=== PATIENT | male | born 1970 | race Two or more races ===

== ENCOUNTER 2023-06-12 15:44 | Inpatient (IN) | payer OTHER ==
[~2023-06-12] VITALS: Ht 185.4 cm; Wt 79.0 kg
[2023-06-12] MEDS ORDERED: ONDANSETRON HCL 4 MG/2 ML VIAL IV ONE (20:30)
[2023-06-12] MEDS ORDERED: levETIRAcetam 500 MG TAB PO ONE (20:30)
[2023-06-12] MEDS ORDERED: OXcarbazepine 300 MG TAB PO ONE (20:30)
[2023-06-12] MEDS ORDERED: DOCUSATE SOD 100 MG CAP PO ONE (20:30)
[2023-06-12] MEDS ORDERED: MORPHINE SULFATE 4 MG/ML SYR/VIAL IV ONE (20:30)
[2023-06-12] MEDS ORDERED: ONDANSETRON HCL 4 MG/2 ML VIAL IV PRN (21:15)
[2023-06-12 21:37] LABS: Basophils # (auto) 0.1 10 ^3/uL (0-0.2); Eosinophils # (auto) 0.2 10 ^3/uL (0-0.8); Hematocrit 39.4 % (41.0-53.0); Hemoglobin 13.5 g/dL (13.5-17.5); Lymphocytes % (auto) 17.2 % (10.0-50.0); Mean Corpuscular Hemoglobin 32.5 pg (28.0-32.0); Mean Corpuscular Hgb Conc. 34.3 g/dL (32.0-36.0); Mean Corpuscular Volume 94.8 fL (80.0-100.0); Monocytes # (auto) 0.6 10 ^3/uL (0-1.3); Monocytes % (auto) 10.7 % (0.0-12.0); Neutrophils % (auto) 68.1 % (37.0-80.0); Nucleated Red Blood Cells % 0.1 %; Red Blood Cells 4.16 10^6/uL (4.5-5.90); Red Cell Distribution Width 12.9 % (11.8-14.3); White Blood Cell 5.8 10^3/uL (4.4-10.8)
[2023-06-12 21:44] LABS: Alanine Aminotransferase 31 U/L (7-40); Albumin 4.9 g/dL (3.2-4.8); Alkaline Phosphatase 77 U/L (46-116); Anion Gap 7 (5-15); Aspartate Aminotransferase 30 U/L (13-40); BUN/Creatinine Ratio 11.3 (10.0-20.0); Bilirubin, Total 0.7 mg/dL (0.2-1.0); Blood Urea Nitrogen 9 mg/dL (9-23); Calcium 10.1 mg/dL (8.5-10.1); Carbon Dioxide 29 mmol/L (20-30); Chloride 104 mmol/L (98-107); Glucose 104 mg/dL (74-106); Sodium 140 mmol/L (136-145); Total Protein 7.8 g/dL (5.7-8.2)
[2023-06-12 21:59] LABS: INR 0.94 (0.9-1.15); Partial Thromboplastin Time 32.9 SEC (24.5-34.5); Prothrombin Time 9.9 sec (9.3-11.8)
[2023-06-12] MEDS ORDERED: carBAMazepine 200 MG TAB PO SCH (22:00)
[2023-06-12] MEDS: levETIRAcetam 500 MG TAB PO SCH (23:04)
[2023-06-12 23:47] LABS: Urine Bacteria NONE SEEN /hpf (None Seen); Urine Blood Negative /uL (Negative); Urine Clarity Clear (Clear); Urine Color Colorless (Yellow); Urine Protein, UAD Negative (Negative); Urine Specific Gravity 1.007 (1.001-1.035); Urine Urobilinogen Normal (Negative); Urine WBC <1 /hpf (0 - 3); Urine pH 6.5 (5.0-8.0)
[2023-06-13] VITALS (7 sets, daily range): BP systolic 102–128; BP diastolic 58–68; PULSE 56–72; RESP 16–17; TEMP 97.7–99; O2SAT 92–99
[2023-06-13] MEDS ORDERED: ACETAMINOPHEN 325 MG TAB PO PRN (02:15)
[2023-06-13] MEDS: MORPHINE SULFATE 4 MG/ML SYR/VIAL IV PRN ×3 (08:21→22:46)
[2023-06-13 10:03] LABS: Alanine Aminotransferase 24 U/L (7-40); Albumin 4.3 g/dL (3.2-4.8); Alkaline Phosphatase 73 U/L (46-116); Anion Gap 5 (5-15); Aspartate Aminotransferase 25 U/L (13-40); BUN/Creatinine Ratio 10.3 (10.0-20.0); Blood Urea Nitrogen 8 mg/dL (9-23); Calcium 9.4 mg/dL (8.5-10.1); Carbon Dioxide 30 mmol/L (20-30); Chloride 104 mmol/L (98-107); Glucose 92 mg/dL (74-106); Potassium 3.9 mmol/L (3.5-5.1); Sodium 139 mmol/L (136-145)
[2023-06-13 10:04] LABS: Bilirubin, Total 0.8 mg/dL (0.2-1.0)
[2023-06-13 10:05] LABS: Total Protein 6.7 g/dL (5.7-8.2)
[2023-06-13 10:15] LABS: Basophils # (auto) 0 10 ^3/uL (0-0.2); Basophils % (auto) 0.8 % (0.0-2.0); Eosinophils # (auto) 0.2 10 ^3/uL (0-0.8); Eosinophils % (auto) 5.5 % (0.0-7.0); Hematocrit 38.5 % (41.0-53.0); Lymphocytes # (auto) 0.8 10 ^3/uL (0.4-5.4); Lymphocytes % (auto) 16.9 % (10.0-50.0); Mean Corpuscular Hemoglobin 31.8 pg (28.0-32.0); Mean Corpuscular Hgb Conc. 33.9 g/dL (32.0-36.0); Mean Corpuscular Volume 93.9 fL (80.0-100.0); Monocytes # (auto) 0.5 10 ^3/uL (0-1.3); Monocytes % (auto) 10.8 % (0.0-12.0); Red Cell Distribution Width 12.6 % (11.8-14.3); White Blood Cell 4.5 10^3/uL (4.4-10.8)
[2023-06-13] MEDS: levETIRAcetam 500 MG TAB PO SCH ×2 (12:03→22:45)
[2023-06-13] MEDS: ENOXAPARIN SOD 40 MG/0.4 ML SYRINGE SC SCH (12:04)
[2023-06-14] VITALS (7 sets, daily range): BP systolic 104–125; BP diastolic 60–66; PULSE 57–97; RESP 16–18; TEMP 97.7–98.6; O2SAT 91–97
[2023-06-14] MEDS: levETIRAcetam 500 MG TAB PO SCH ×2 (08:46→20:48)
[2023-06-14] MEDS: HYDROcodone-ACET 10/325MG TAB PO PRN ×3 (08:47→20:48)
[2023-06-14] MEDS: ENOXAPARIN SOD 40 MG/0.4 ML SYRINGE SC SCH (08:47)
[2023-06-14] MEDS: NAPROXEN 500 MG TAB PO SCH ×2 (08:56→20:48)
[2023-06-15 04:00] VITALS: BP 113/58; PULSE 18; RESP 18; TEMP 98.5; O2SAT 96
[2023-06-15] MEDS: HYDROcodone-ACET 10/325MG TAB PO PRN ×4 (05:46→20:17)
[2023-06-15 08:36] VITALS: BP 111/60; PULSE 50; RESP 16; TEMP 97.8; O2SAT 95
[2023-06-15] MEDS: NAPROXEN 500 MG TAB PO SCH ×2 (09:19→21:22)
[2023-06-15] MEDS: levETIRAcetam 500 MG TAB PO SCH ×2 (09:19→21:22)
[2023-06-15] MEDS: ENOXAPARIN SOD 40 MG/0.4 ML SYRINGE SC SCH (09:19)
[2023-06-15 13:00] VITALS: BP 109/54; PULSE 52; RESP 16; TEMP 97.8; O2SAT 95
[2023-06-15 17:00] VITALS: BP 100/58; PULSE 54; RESP 16; TEMP 97.9; O2SAT 95
[2023-06-15 22:00] VITALS: BP 113/60; PULSE 65; RESP 20; TEMP 97.6; O2SAT 93
[2023-06-16] MEDS: HYDROcodone-ACET 10/325MG TAB PO PRN ×5 (00:25→23:17)
[2023-06-16 05:00] VITALS: BP 103/58; PULSE 60; RESP 20; TEMP 98; O2SAT 97
[2023-06-16 08:20] VITALS: RESP 18
[2023-06-16 09:00] VITALS: BP 110/46; PULSE 61; RESP 16; TEMP 97.6; O2SAT 96
[2023-06-16] MEDS: levETIRAcetam 500 MG TAB PO SCH ×2 (10:01→21:25)
[2023-06-16] MEDS: NAPROXEN 500 MG TAB PO SCH ×2 (10:01→21:26)
[2023-06-16] MEDS: ENOXAPARIN SOD 40 MG/0.4 ML SYRINGE SC SCH (10:01)
[2023-06-16 13:00] VITALS: BP 115/54; PULSE 60; RESP 18; TEMP 97.9; O2SAT 96
[2023-06-16 17:00] VITALS: BP 119/64; PULSE 60; RESP 18; TEMP 97.9; O2SAT 96
[2023-06-16 22:00] VITALS: BP 105/46; PULSE 56; RESP 18; TEMP 97.5; O2SAT 97
[2023-06-17] MEDS: HYDROcodone-ACET 10/325MG TAB PO PRN ×5 (04:20→23:33)
[2023-06-17 05:00] VITALS: BP 115/83; PULSE 58; RESP 18; TEMP 97.6; O2SAT 97
[2023-06-17 08:00] VITALS: RESP 16
[2023-06-17] MEDS: levETIRAcetam 500 MG TAB PO SCH ×2 (08:54→21:17)
[2023-06-17] MEDS: NAPROXEN 500 MG TAB PO SCH ×2 (08:54→21:18)
[2023-06-17] MEDS: ENOXAPARIN SOD 40 MG/0.4 ML SYRINGE SC SCH (08:55)
[2023-06-17 09:00] VITALS: BP 108/53; PULSE 54; RESP 16; TEMP 98.4; O2SAT 97
[2023-06-17 13:00] VITALS: BP 125/36; PULSE 61; RESP 20; TEMP 98.6; O2SAT 95
[2023-06-17 17:00] VITALS: BP 103/42; PULSE 53; RESP 18; TEMP 98.4; O2SAT 96
[2023-06-17 22:00] VITALS: BP 115/58; PULSE 65; RESP 18; TEMP 97.3; O2SAT 97
[2023-06-18 05:00] VITALS: BP 108/57; PULSE 45; RESP 17; TEMP 97.5; O2SAT 97
[2023-06-18] MEDS: HYDROcodone-ACET 10/325MG TAB PO PRN ×3 (05:50→13:58)
[2023-06-18 09:19] VITALS: BP 119/54; PULSE 53; RESP 18; TEMP 97.7; O2SAT 98
[2023-06-18] MEDS: levETIRAcetam 500 MG TAB PO SCH (10:01)
[2023-06-18] MEDS: NAPROXEN 500 MG TAB PO SCH (10:02)
[2023-06-18] MEDS: ENOXAPARIN SOD 40 MG/0.4 ML SYRINGE SC SCH (10:03)
[2023-06-18 14:24] VITALS: BP 108/58; PULSE 57; RESP 18; TEMP 98.2; O2SAT 97
[2023-06-18 14:45] VITALS: BP 108/58; PULSE 57; RESP 18; TEMP 98.2; O2SAT 97
== END 2023-06-18 15:09 | DRG 101 ==
LOC: ER 15:44 → EEVIPCON 15:44 → OVERFLOW 21:27 → WEST WING 06-13 03:00
PROVIDERS: ADMIT Internal Medicine; ATTEND Internal Medicine
DX: G40.909 Epilepsy, unspecified, not intractable, without status epilepticus (principal); S32.301A Unspecified fracture of right ilium, initial encounter for closed fracture; W06.XXXA Fall from bed, initial encounter; J45.909 Unspecified asthma, uncomplicated; S30.1XXA Contusion of abdominal wall, initial encounter; Y92.003 Bedroom of unspecified non-institutional (private) residence as the place of occurrence of the external cause; Y93.89 Activity, other specified; Y99.8 Other external cause status
CPT/HCPCS: 36415; 70450; 71111; 72125; 74176; 80053; 80156; 81001; 85025; 85610; 85730; 87081; 97110; 97116; 97163; 97530; G0378; J2405